=== PATIENT | female | born 1950 | race Caucasian/White ===

== ENCOUNTER 2022-07-04 15:54 | Emergency (ER) | payer OTHER ==
[~2022-07-04] VITALS: Ht 157.5 cm; Wt 83.9 kg
[2022-07-04 15:59] VITALS: BP 183/81
[2022-07-04 16:36] LABS: BASOPHILS # (AUTO) 0.1 K/uL (0.00-0.22); BASOPHILS % (AUTO) 1.1 % (0.0-2.0); EOSINOPHILS # (AUTO) 0.1 K/uL (0-0.4); EOSINOPHILS % (AUTO) 0.8 % (0.0-4.0); HEMATOCRIT 39.8 % (36-48); HEMOGLOBIN 13.4 g/dL (12.0-16.0); LYMPHOCYTES # (AUTO) 0.7 K/uL (2.5-16.5); MEAN CORPUSCULAR HEMOGLOBIN 35 pg (27-31); MEAN CORPUSCULAR HGB CONC 34 g/dL (33-37); MEAN CORPUSCULAR VOLUME 104.4 fL (80-94); MONOCYTES # (AUTO) 0.5 K/uL (0.8-1.0); MONOCYTES % (AUTO) 5.1 % (1.7-9.3); NEUTROPHILS # (AUTO) 7.8 K/uL (1.8-7.7); PLATELET COUNT (AUTO) 249 K/uL (140-450); RED BLOOD CELL COUNT(AUTO) 3.81 MIL/uL (4.20-5.40); RED CELL DISTRIBUTION WIDTH 14.5 % (11.6-13.7); WHITE BLOOD COUNT (AUTO) 9.2 K/uL (4.8-10.8)
[2022-07-04 16:56] LABS: ANION GAP 14.5 (8-16); ASPARTATE AMINOTRANSFERASE 28 U/L (15-37); CARBON DIOXIDE 28.1 mmol/L (21-32); CHLORIDE 90 mmol/L (98-107); GLUCOSE 165 mg/dL (74-106); POTASSIUM 3.6 mmol/L (3.5-5.1); SODIUM SERUM 129 mmol/L (136-145); TOTAL BILIRUBIN 0.7 mg/dL (0.0-1.0); UREA NITROGEN, BLOOD 19 mg/dL (7-18)
--- NOTE | 2022-07-04 18:15 | NUR ---
PT. WITH RIGHT UPPER CHEST DIALYSIS CATH. DRESSING INTACT WITH NO DISCHARGE. DRESSING NOT REMOVED.
--- NOTE | 2022-07-04 18:24 | NUR ---
PT. MOVED TO BED 12 WITH NO DIFF. NO ACUTE DISTRESS
--- NOTE | 2022-07-04 18:32 | NUR ---
UPDATED DAWOOD LOZA ON PATIENTS CONDITION.
--- NOTE | 2022-07-04 19:25 | NUR ---
Patient resting in bed, A/Ox4, chest rise and fall symmetrical, no c/o pain of s/s of distress, on monitor.
--- NOTE | 2022-07-04 20:02 | NUR ---
PT.'S GRAND DAUGHTER CALLED [phone] FOR PT. BEHAVIORAL GENETICIST. SHE AGREES TO BEHAVIORAL GENETICIST. REPORT GIVEN TO KEVIN. HARVEY'S PRIMARY RN
[2022-07-04 20:20] VITALS: BP 138/62
== END 2022-07-04 20:20 | disposition home or self-care (01) ==
LOC: MED 15:54
DX: R41.0 Disorientation, unspecified (principal); Z20.822 Contact with and (suspected) exposure to COVID-19; E11.9 Type 2 diabetes mellitus without complications; E03.9 Hypothyroidism, unspecified; I10 Essential (primary) hypertension; N18.6 End stage renal disease; Z99.2 Dependence on renal dialysis; Z79.4 Long term (current) use of insulin; Z79.899 Other long term (current) drug therapy
CPT/HCPCS: 36415; 70450; 71045; 80053; 82140; 85025; 99284